=== PATIENT | male | born 2000 | race Caucasian/White ===

== ENCOUNTER 2021-09-21 14:17 | Emergency (ER) | payer OTHER ==
[2021-09-21 14:26] VITALS: BP 139/73; PULSE 90; RESP 18; TEMP 98.1
[2021-09-21] MEDS ORDERED: KETOROLAC 15 MG/ML 1 ML VIAL IVP STA (14:35)
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
--- NOTE | 2021-09-21 15:00 | XR ---
EXAMINATION TYPE: XR wrist complete LT DATE OF EXAM: 09/21/2021 COMPARISON: NONE HISTORY: 21-year-old male with redness and swelling, rule out foreign body TECHNIQUE: 4 views FINDINGS: Generalized soft tissue swelling especially along the volar radial aspect. No underlying periostitis or osteolysis. Radiocarpal and distal radial ulnar joint as well as mid carpal compartment appear int act. IMPRESSION: Soft tissue swelling, pronounced along the radial and volar aspect. No retained radiopaque foreign thanh dy seen. No underlying acute osseous abnormality seen.
[2021-09-21 16:04] LABS: ALT 21 U/L (4-49); AST 40 U/L (17-59); African American GFR (CKD) >90 (>60 ml/min/1.73 sqM); Albumin 4.7 g/dL (3.5-5.0); Alkaline Phosphatase 92 U/L (38-126); Anion Gap 10 mmol/L; Blood Urea Nitrogen 15 mg/dL (9-20); Calcium 9.1 mg/dL (8.4-10.2); Carbon Dioxide 24 mmol/L (22-30); Chloride 105 mmol/L (98-107); Glucose 93 mg/dL (74-99); Non-African American GFR(CKD) >90 (>60 ml/min/1.73 sqM); Sodium 139 mmol/L (137-145); Total Bilirubin 1.1 mg/dL (0.2-1.3); Total Protein 7.8 g/dL (6.3-8.2)
[2021-09-21 16:08] LABS: Basophils # (A) 0.1 k/uL (0-0.2); Basophils % (A) 1 %; Eosinophils # (A) 0.2 k/uL (0-0.7); Eosinophils % (A) 3 %; HCT 47.2 % (39.0-53.0); HGB 15.5 gm/dL (13.0-17.5); Lymphocytes # (A) 2.4 k/uL (1.0-4.8); Lymphocytes % (A) 27 %; MCH 28.2 pg (25.0-35.0); MCV 85.5 fL (80.0-100.0); Mean Platelet Volume 7.7; Monocytes # (A) 0.7 k/uL (0-1.0); Monocytes % (A) 8 %; Neutrophils # (A) 5.4 k/uL (1.3-7.7); Neutrophils % (A) 60 %; Platelet Count 252 k/uL (150-450); RBC 5.52 m/uL (4.30-5.90); RDW 13.3 % (11.5-15.5); WBC 8.9 k/uL (4.0-11.0)
[2021-09-21 16:17] LABS: Potassium 4.2 mmol/L (3.5-5.1)
== END 2021-09-21 17:00 | disposition home or self-care (01) ==
LOC: EC 14:17
DX: L03.114 Cellulitis of left upper limb (principal)
CPT/HCPCS: 36415; 80053; 85025; 87040; 73110; 99284; 96365; J0690; J1885